=== PATIENT | female | born 1960 | race Caucasian/White ===

== ENCOUNTER 2017-03-23 20:47 | Emergency (ER) | payer BC ==
[2017-03-23] MEDS ORDERED: Ketorolac 60 MG/2 ML SDV IM ONE (22:28)
--- NOTE | 2017-03-23 22:34 | EDM.PDOC ---
ED HPI GENERAL MEDICAL PROBLEM - General Chief Complaint: Lower Extremity Injury/Pain Stated Complaint: PT HURT RT FOOT Time Seen by Provider: 03/23/17 21:05 Source of Information: Reports: Patient, Family History Limitations: Reports: No Limitations - History of Present Illness INITIAL COMMENTS - FREE TEXT/NARRATIVE: History of present illness: [57-year-old female comes in with complaint of foot pain patient indicates that her right great toe and the dorsal aspect as well as the plantar aspect of her right foot hurts when she ambulates.] Review of systems: As per history of present illness and below otherwise all systems reviewed and negative. Past medical history: As per history of present illness and as reviewed below otherwise noncontributory. Surgical history: As per history of present illness and as reviewed below otherwise noncontributory. Social history: No reported history of drug or alcohol abuse. Family history: As per history of present illness and as reviewed below otherwise noncontributory. Physical exam: HEENT: Atraumatic, normocephalic, pupils reactive, negative for conjunctival pallor or scleral icterus, mucous membranes moist, throat clear, neck supple, nontender, trachea midline. Lungs: Clear to auscultation, breath sounds equal bilaterally, chest nontender. Heart: S1S2, regular, negative for clicks, rubs, or JVD. Abdomen: Soft, nondistended, nontender. Negative for masses or hepatosplenomegaly. Negative for costovertebral tenderness. Pelvis: Stable nontender. Genitourinary: Deferred. Rectal: Deferred. Extremities: Atraumatic, negative for cords or calf pain. Neurovascular unremarkable. Neuro: Awake, alert, oriented. Cranial nerves II through XII unremarkable. Cerebellum unremarkable. Motor and sensory unremarkable throughout. Exam nonfocal. Global assessment was benign the foot is atraumatic and the patient indicated the palpation and manipulation of the foot and toe was not painful and she didn' t understand how her walking on it can hurt so much more than having it manually assessed. Diagnostics: [] Therapeutics: [Toradol 60 mg IM] Impression: [#1 foot pain] Plan: [Follow-up with primary care provider] Definitive disposition and diagnosis as appropriate pending reevaluation and review of above. right foot Pain Score (Numeric/FACES): 8 - Related Data Allergies Allergy/AdvReac Type Severity Reaction Status Date / Time No Known Allergies Allergy Verified 10/22/17 21:29 Home Meds: Home Meds Aspirin [Adult Low Dose Aspirin EC] 1 tab PO DAILY 02/09/15 [History] Losartan/Hydrochlorothiazide [Losartan-HCTZ 100-25 MG] 1 tab PO DAILY 02/09/15 [ History] atorvaSTATin [Lipitor] 1 tab PO DAILY 02/09/15 [History] Meloxicam 7.5 mg PO BID #30 tablet 03/23/17 [Rx] Past Medical History HEENT History: Reports: None Cardiovascular History: Reports: Hypertension, Stents, Other (See Below) Other Cardiovascular History: enlarged heart Respiratory History: Reports: None Gastrointestinal History: Reports: None Genitourinary History: Reports: Renal Calculus [employer] History: Reports: Musculoskeletal History: Reports: Arthritis, RA Neurological History: Reports: None Psychiatric History: Reports: None Endocrine/Metabolic History: Reports: None Hematologic History: Reports: None Immunologic History: Reports: None Oncologic (Cancer) History: Reports: None Dermatologic History: Reports: None - Infectious Disease History Infectious Disease History: Reports: Chicken Pox - Past Surgical History Head Surgeries/Procedures: Reports: None HEENT Surgical History: Reports: None Cardiovascular Surgical History: Reports: Carotid Stents GI Surgical History: Reports: None Female Surgical History: Reports: Section Social & Family History - Tobacco Use Smoking Status *Q: Never Smoker - Caffeine Use Caffeine Use: Reports: Coffee, Tea - Recreational Drug Use Recreational Drug Use: No Review of Systems - Review of Systems Review Of Systems: See Below (See history of present illness) ED EXAM, GENERAL - Physical Exam Exam: See Below (See history of present illness) Course - Vital Signs Last Recorded V/S: Last Vital Signs Temp 36.2 C 03/23/17 21:00 Pulse 87 03/23/17 21:00 Resp 18 03/23/17 21:00 BP 146/76 H 03/23/17 21:00 Pulse Ox 95 03/23/17 21:00 - Orders/Labs/Meds Orders: Active Orders 24 hr Category Date Time Status Foot 2V Rt [CR] Stat Exams 03/23/17 21:09 Ordered Ketorolac [Toradol] Med 03/23/17 22:28 Once 60 mg IM ONETIME ONE Labs: Laboratory Tests 03/23/17 03/23/17 Range/Units 21:45 21:45 WBC 10.76 (4.0-11.0) K/uL RBC 3.56 L (4.30-5.90) M/uL Hgb 11.6 L (12.0-16.0) g/dL Hct 35.7 L (36.0-46.0) % MCV 100.3 H (80.0-98.0) fL MCH 32.6 H (27.0-32.0) pg MCHC 32.5 (31.0-37.0) g/dL RDW Std Deviation 59.5 (28.0-62.0) fl RDW Coeff of Ursula 17 H (11.0-15.0) % Plt Count 355 (150-400) K/uL MPV 8.70 (7.40-12.00) fL Neut % (Auto) 86.4 H (48.0-80.0) % Lymph % (Auto) 10.6 L (16.0-40.0) % Dewey % (Auto) 2.0 (0.0-15.0) % Eos % (Auto) 0.6 (0.0-7.0) % Baso % (Auto) 0.4 (0.0-1.5) % Neut # (Auto) 9.3 H (1.4-5.7) K/uL Lymph # (Auto) 1.1 (0.6-2.4) K/uL Dewey # (Auto) 0.2 (0.0-0.8) K/uL Eos # (Auto) 0.1 (0.0-0.7) K/uL Baso # (Auto) 0.0 (0.0-0.1) K/uL Nucleated RBC % 0.0 /100WBC Nucleated RBCs # 0 K/uL Sodium 141 (136-146) mmol/L Potassium 3.6 (3.5-5.1) mmol/L Chloride 104 (98-110) mmol/L Carbon Dioxide 23 (21-31) mmol/L BUN 19 (6.0-23.0) mg/dL Creatinine 1.3 (0.6-1.5) mg/dL Est Cr Clr Drug Dosing 39.02 mL/min Estimated GFR (MDRD) 42.1 ml/min Glucose 131 H (60-110) mg/dL Uric Acid 11.2 H (2.1-6.2) mg/dL Calcium 10.0 (8.8-10.8) mg/dL Total Bilirubin 1.2 (0.1-1.5) mg/dL AST 26 (5-40) IU/L ALT 23 (8-54) IU/L Alkaline Phosphatase 77 (40-150) Total Protein 7.7 (6.0-8.0) g/dL Albumin 4.0 (3.5-5.0) g/dL Globulin 3.7 H (2.0-3.5) g/dL Albumin/Globulin Ratio 1.1 L (1.3-2.8) Departure - Departure Time of Disposition: 22:35 Disposition: Home, Self-Care 01 Condition: Good Clinical Impression: Foot pain, right - Discharge Information Referrals: PCP,None [Primary Care Provider] - Additional Instructions: The following information is given to patients seen in the emergency department who are being discharged to home. This information is to outline your options for follow-up care. We provide all patients seen in our emergency department with a follow-up referral. The need for follow-up, as well as the timing and circumstances, are variable depending upon the specifics of your emergency department visit. If you don't have a primary care physician on staff, we will provide you with a referral. We always advise you to contact your personal physician following an emergency department visit to inform them of the circumstance of the visit and for follow-up with them and/or the need for any referrals to a consulting specialist. The emergency department will also refer you to a specialist when appropriate. This referral assures that you have the opportunity for follow-up care with a specialist. All of these measure are taken in an effort to provide you with optimal care, which includes your follow-up. Under all circumstances we always encourage you to contact your private physician who remains a resource for coordinating your care. When calling for follow-up care, please make the office aware that this follow-up is from your recent emergency room visit. If for any reason you are refused follow-up, please contact the [facility] Emergency Department at and asked to speak to the emergency department charge nurse. Take medication as directed follow-up with PCP 1-2 days Return to ED as needed as discussed - My Orders Last 24 Hours: My Active Orders 03/23/17 21:09 Foot 2V Rt [CR] Stat 03/23/17 22:28 Ketorolac [Toradol] 60 mg IM ONETIME ONE - Assessment/Plan Last 24 Hours: My Active Orders 03/23/17 21:09 Foot 2V Rt [CR] Stat 03/23/17 22:28 Ketorolac [Toradol] 60 mg IM ONETIME ONE
[2017-03-23] MEDS ORDERED: traMADol 50 MG Tab PO ONE (22:59)
[2017-03-24 03:15] VITALS: BP 150/90
--- NOTE | 2017-03-24 18:14 | CR ---
EXAM DATE: 03/23/17 PATIENT'S AGE: 57 Patient: SHARRON HOLDEN Facility: [place], [place] Site . Site : 1960 Study: XRay Extremity Right foot [id number]/22/2017 9:51:58 PM Ordering Physician: Doctor Rod Final Report: INDICATION: Foot pain TECHNIQUE: Foot radiograph 2 views right COMPARISON: None FINDINGS: Bones: Alignment is normal. No acute fractures or aggressive bone lesions identified. Large plantar calcaneal spur and enthesophyte noted. Joint spaces: Unremarkable. No ankle effusion is seen. Soft tissues: Mild diffuse swelling and edema seen. Kager`s fat pad is normal in appearance. The visualized Achilles` tendon is unremarkable. No radiopaque foreign bodies are seen. IMPRESSION: 1. No acute osseous injuries are noted. Dictated by: Kevin Bolanos MD @ 03/23/2017 22:17:40 (Electronic Signature) Report Signed by Proxy. CALE
== END 2017-03-23 23:25 | disposition home or self-care (01) ==
LOC: MW.ED 20:47
DX: M79.671 Pain in right foot (principal); M79.674 Pain in right toe(s); Z79.82 Long term (current) use of aspirin; Z79.899 Other long term (current) drug therapy
CPT/HCPCS: 36415; 73620; 80053; 84550; 85025; 99284; A9270; 99282

== ENCOUNTER 2018-10-21 04:07 | Emergency (ER) | payer SELFPAY ==
[2018-10-21] MEDS ORDERED: Sodium Chloride 0.9% 1,000 ML IV ONE (04:26)
--- NOTE | 2018-10-21 06:00 | EDM.PDOC ---
ED HPI GENERAL MEDICAL PROBLEM - General Chief Complaint: Genitourinary Problem Stated Complaint: PRESSURE, SHORTNESS OF BREATH Time Seen by Provider: 10/21/18 06:00 - History of Present Illness INITIAL COMMENTS - FREE TEXT/NARRATIVE: HISTORY AND PHYSICAL: History of present illness: Patient is a 58-year-old female presents with concern of urgency frequency and discomfort with urination denies fever chills nausea vomiting or other complaints Review of systems: As per history of present illness and below otherwise all systems reviewed and negative. Past medical history: As per history of present illness and as reviewed below otherwise noncontributory. Surgical history: As per history of present illness and as reviewed below otherwise noncontributory. Social history: No reported history of drug or alcohol abuse. Family history: As per history of present illness and as reviewed below otherwise noncontributory. Physical exam: HEENT: Atraumatic, normocephalic, pupils reactive, negative for conjunctival pallor or scleral icterus, mucous membranes moist, throat clear, neck supple, nontender, trachea midline. Lungs: Clear to auscultation, breath sounds equal bilaterally, chest nontender. Heart: S1S2, regular, negative for clicks, rubs, or JVD. Abdomen: Soft, nondistended, nontender. Negative for masses or hepatosplenomegaly. Negative for costovertebral tenderness. Pelvis: Stable nontender. Genitourinary: Deferred. Rectal: Deferred. Extremities: Atraumatic, negative for cords or calf pain. Neurovascular unremarkable. Neuro: Awake, alert, oriented. Cranial nerves II through XII unremarkable. Cerebellum unremarkable. Motor and sensory unremarkable throughout. Exam nonfocal. Diagnostics: CBC CMP UA Therapeutics: None Impression: #1 urinary tract infection Definitive disposition and diagnosis as appropriate pending reevaluation and review of above. painful urination Pain Score (Numeric/FACES): 1 - Related Data Allergies Allergy/AdvReac Type Severity Reaction Status Date / Time No Known Allergies Allergy Verified 10/21/18 04:09 Home Meds: Home Meds Aspirin [Adult Low Dose Aspirin EC] 1 tab PO DAILY 02/09/15 [History] Losartan/Hydrochlorothiazide [Losartan-HCTZ 100-25 MG] 12.5 mg PO DAILY [History] atorvaSTATin [Lipitor] 40 tab PO DAILY 02/09/15 [History] Carvedilol 25 mg PO BID 10/21/18 [History] Losartan Potassium 100 mg PO DAILY 10/21/18 [History] Past Medical History HEENT History: Reports: None Cardiovascular History: Reports: High Cholesterol, Hypertension, Stents, Other ( See Below) Other Cardiovascular History: enlarged heart Respiratory History: Reports: None Gastrointestinal History: Reports: None Genitourinary History: Reports: Renal Calculus [employer]ENTICE History: Reports: Musculoskeletal History: Reports: RA Neurological History: Reports: None Psychiatric History: Reports: Anxiety, Panic Attack Endocrine/Metabolic History: Reports: None Hematologic History: Reports: None Immunologic History: Reports: None Oncologic (Cancer) History: Reports: None Dermatologic History: Reports: None - Infectious Disease History Infectious Disease History: Reports: None - Past Surgical History Head Surgeries/Procedures: Reports: None HEENT Surgical History: Reports: None Cardiovascular Surgical History: Reports: Carotid Stents GI Surgical History: Reports: None Female Surgical History: Reports: Section Social & Family History - Family History Family Medical History: Noncontributory - Tobacco Use Smoking Status *Q: Former Smoker Used Tobacco, but Quit: No Tobacco Use Comment: stop 29 yrs ago - Caffeine Use Caffeine Use: Reports: Coffee, Soda - Recreational Drug Use Recreational Drug Use: No ED ROS GENERAL - Review of Systems Review Of Systems: ROS reveals no pertinent complaints other than HPI. ED EXAM, GENERAL - Physical Exam Exam: See Below (See dictation) Course - Vital Signs Text/Narrative:: I discussed diagnostics with patient and hematuria with likely diagnosis P and cystitis and infectious in nature but the need for follow-up she understands and agrees I did discuss that there are other etiologies and that urology referral as well as follow with her private doctor is necessary for reevaluation and repeat urinalysis patient understands and agrees she'll be prescribed ciprofloxacin 500 mg twice a day to be taken 10 days. Last Recorded V/S: Last Vital Signs Temp 36.4 C 10/21/18 04:10 Pulse 81 10/21/18 04:10 Resp 18 10/21/18 04:10 BP 189/70 H 10/21/18 04:10 Pulse Ox 95 10/21/18 04:10 - Orders/Labs/Meds Orders: Active Orders 24 hr Category Date Time Status CULTURE URINE [RM] Stat Lab 10/21/18 04:15 Received Labs: Laboratory Tests 10/21/18 10/21/18 10/21/18 Range/Units 04:15 04:40 04:40 WBC 9.24 (4.0-11.0) K/uL RBC 4.12 L (4.30-5.90) M/uL Hgb 12.7 (12.0-16.0) g/dL Hct 38.8 (36.0-46.0) % MCV 94.2 (80.0-98.0) fL MCH 30.8 (27.0-32.0) pg MCHC 32.7 (31.0-37.0) g/dL RDW Std Deviation 49.4 (28.0-62.0) fl RDW Coeff of Ursula 15 (11.0-15.0) % Plt Count 251 (150-400) K/uL MPV 9.40 (7.40-12.00) fL Neut % (Auto) 74.6 (48.0-80.0) % Lymph % (Auto) 15.2 L (16.0-40.0) % Jenkins % (Auto) 7.4 (0.0-15.0) % Eos % (Auto) 2.4 (0.0-7.0) % Baso % (Auto) 0.4 (0.0-1.5) % Neut # (Auto) 6.9 H (1.4-5.7) K/uL Lymph # (Auto) 1.4 (0.6-2.4) K/uL Jenkins # (Auto) 0.7 (0.0-0.8) K/uL Eos # (Auto) 0.2 (0.0-0.7) K/uL Baso # (Auto) 0.0 (0.0-0.1) K/uL Nucleated RBC % 0.0 /100WBC Nucleated RBCs # 0 K/uL Sodium 142 (136-145) mmol/L Potassium 3.7 (3.5-5.1) mmol/L Chloride 104 (98-107) mmol/L Carbon Dioxide 24.8 (21.0-32.0) mmol/L BUN 18 (7.0-18.0) mg/dL Creatinine 1.5 H (0.6-1.0) mg/dL Est Cr Clr Drug Dosing 31.94 mL/min Estimated GFR (MDRD) 35.5 ml/min Glucose 165 H (74-106) mg/dL Calcium 9.0 (8.5-10.1) mg/dL Total Bilirubin 0.6 (0.2-1.0) mg/dL AST 17 (15-37) IU/L ALT 18 (14-63) IU/L Alkaline Phosphatase 83 (46-116) U/L Total Protein 7.7 (6.4-8.2) g/dL Albumin 3.7 (3.4-5.0) g/dL Globulin 4.0 (2.6-4.0) g/dL Albumin/Globulin Ratio 0.9 (0.9-1.6) Urine Color RED Urine Appearance CLOUDY Urine pH 6.0 (5.0-8.0) Ur Specific Bradford 1.020 (1.001-1.035) Urine Protein 100 H (NEGATIVE) mg/dL Urine Glucose (UA) NEGATIVE (NEGATIVE) mg/dL Urine Ketones NEGATIVE (NEGATIVE) mg/dL Urine Occult Blood LARGE H (NEGATIVE) Urine Nitrite NEGATIVE (NEGATIVE) Urine Bilirubin NEGATIVE (NEGATIVE) Urine Urobilinogen 0.2 (<2.0) EU/dL Ur Leukocyte Esterase SMALL H (NEGATIVE) Urine RBC TOO NUMEROUS TO CT H (0-2/HPF) Urine WBC 2-5 (0-5/HPF) Ur Epithelial Cells RARE (NONE-FEW) Urine Bacteria RARE (NEGATIVE) Urinalysis Comment Meds: Medications Discontinued Medications Generic Name Dose Route Start Last Admin Trade Name Freq PRN Reason Stop Dose Admin Sodium Chloride 1,000 mls @ 999 mls/hr 10/21/18 04:26 10/21/18 05:35 Normal Saline IV 10/21/18 05:26 600 mls/hr .Bolus ONE Infusion Departure - Departure Time of Disposition: 05:59 Disposition: Home, Self-Care 01 Condition: Good Clinical Impression: UTI, Urinary tract infectious disease - Discharge Information Referrals: Young Onofre MD [Primary Care Provider] - Additional Instructions: The following information is given to patients seen in the emergency department who are being discharged to home. This information is to outline your options for follow-up care. We provide all patients seen in our emergency department with a follow-up referral. The need for follow-up, as well as the timing and circumstances, are variable depending upon the specifics of your emergency department visit. If you don't have a primary care physician on staff, we will provide you with a referral. We always advise you to contact your personal physician following an emergency department visit to inform them of the circumstance of the visit and for follow-up with them and/or the need for any referrals to a consulting specialist. The emergency department will also refer you to a specialist when appropriate. This referral assures that you have the opportunity for followup care with a specialist. All of these measure are taken in an effort to provide you with optimal care, which includes your followup. Under all circumstances we always encourage you to contact your private physician who remains a resource for coordinating your care. When calling for followup care, please make the office aware that this follow-up is from your recent emergency room visit. If for any reason you are refused follow-up, please contact the [facility] emergency department at and asked to speak to the emergency department charge nurse. [facility] Specialty Care - Urology [address] [place] [id number] Cipro as prescribed follow-up private medical doctor urology referral as discussed return as needed as discussed - My Orders Last 24 Hours: My Active Orders 10/21/18 04:15 CULTURE URINE [RM] Stat - Assessment/Plan Last 24 Hours: My Active Orders 10/21/18 04:15 CULTURE URINE [RM] Stat
[2018-10-21 06:17] VITALS: BP 180/72
== END 2018-10-21 06:17 | disposition home or self-care (01) ==
LOC: MW.ED 04:07
DX: N39.0 Urinary tract infection, site not specified (principal); I10 Essential (primary) hypertension; E78.00 Pure hypercholesterolemia, unspecified; F41.9 Anxiety disorder, unspecified; Z87.891 Personal history of nicotine dependence; Z79.82 Long term (current) use of aspirin; Z79.899 Other long term (current) drug therapy
CPT/HCPCS: 36415; 80053; 81001; 85025; 87086; 87088; 87186; 96360; 99283; J7040

== ENCOUNTER 2019-05-10 14:21 | Emergency (ER) | payer MEDICARE, OTHER ==
--- NOTE | 2019-05-10 14:49 | EDM.PDOC ---
ED HPI GENERAL MEDICAL PROBLEM - General Chief Complaint: Genitourinary Problem Stated Complaint: POSSIBLE UTI, HARD TIME CATCHING HER BREATH Time Seen by Provider: 05/10/19 14:49 Source of Information: Reports: Patient History Limitations: Reports: No Limitations - History of Present Illness INITIAL COMMENTS - FREE TEXT/NARRATIVE: HISTORY AND PHYSICAL: History of present illness: Patient is a 59-year-old female presents to the ED with complaint of possible UTI. She states for the past week she is having lower abdominal pressure that is worse with urination. She states her urine was slightly pink last week but this has resolved. She denies back pain, nausea, vomiting, fevers, or chills. She also states she has had a cough the past few days. She reports feeling short of breath occasionally, usually with a coughing fit. She denies chest pain. She reports history of asthma but out of her inhaler. she did use her daughters inhaler last night and felt better with this. Review of systems: As per history of present illness and below otherwise all systems reviewed and negative. Past medical history: As per history of present illness and as reviewed below otherwise noncontributory. Surgical history: As per history of present illness and as reviewed below otherwise noncontributory. Social history: No reported history of drug or alcohol abuse. Family history: As per history of present illness and as reviewed below otherwise noncontributory. Physical exam: General: Patient sitting comfortably in no acute distress and nontoxic appearing HEENT: Atraumatic, normocephalic, pupils reactive, negative for conjunctival pallor or scleral icterus, mucous membranes moist, throat clear, neck supple, nontender, trachea midline. No meningeal signs. Lungs: Clear to auscultation, breath sounds equal bilaterally, chest nontender. Heart: S1S2, regular, negative for clicks, rubs, or overt murmur. Abdomen: Soft, nondistended, nontender. Negative for masses or hepatosplenomegaly. Negative for costovertebral tenderness. No rigidity, rebound , guarding. Pelvis: Stable nontender. Genitourinary: Deferred. Rectal: Deferred. Extremities: Atraumatic, negative for cords or calf pain. Neurovascular unremarkable. Neuro: Awake, alert, oriented. Cranial nerves II through XII unremarkable. Cerebellum unremarkable. Motor and sensory unremarkable throughout. Exam nonfocal. Notes: Diagnostics: UA, CBC, CMP, troponin, EKG Therapeutics: [] Prescriptions: Levaquin Ventolin inhaler Impression: UTI, Acute bronchitis Plan: Drink plenty of fluids and take antibiotic as directed. Follow up with primary care provider Return to ED as needed as discussed Definitive disposition and diagnosis as appropriate pending reevaluation and review of above. Bilateral Abdomen Pain Score (Numeric/FACES): 2 - Related Data Allergies Allergy/AdvReac Type Severity Reaction Status Date / Time No Known Allergies Allergy Verified 05/10/19 14:49 Home Meds: Home Meds Aspirin [Adult Low Dose Aspirin EC] 1 tab PO DAILY 02/09/15 [History] atorvaSTATin [Lipitor] 40 tab PO DAILY 02/09/15 [History] Losartan Potassium 100 mg PO DAILY 10/21/18 [History] carvediloL [Carvedilol] 25 mg PO BID 10/21/18 [History] Albuterol Sulfate [Proair Hfa] 8.5 gm IH ASDIRECTED 05/10/19 [History] Albuterol [Ventolin HFA] 1 puff INH Q4H #1 inhaler 05/10/19 [Rx] Hydrochlorothiazide [Microzide] 12.5 mg PO DAILY 05/10/19 [History] Nitroglycerin [Nitrostat] 0.4 mg SL ASDIRECTED 05/10/19 [History] levoFLOXacin [Levaquin] 500 mg PO DAILY 7 Days #7 tab 05/10/19 [Rx] Past Medical History HEENT History: Reports: None Cardiovascular History: Reports: High Cholesterol, Hypertension, Stents, Other ( See Below) Other Cardiovascular History: enlarged heart Respiratory History: Reports: None Gastrointestinal History: Reports: None Genitourinary History: Reports: Renal Calculus [employer]OR History: Reports: Musculoskeletal History: Reports: RA Neurological History: Reports: None Psychiatric History: Reports: Anxiety, Panic Attack Endocrine/Metabolic History: Reports: None Hematologic History: Reports: None Immunologic History: Reports: None Oncologic (Cancer) History: Reports: None Dermatologic History: Reports: None - Infectious Disease History Infectious Disease History: Reports: None - Past Surgical History Head Surgeries/Procedures: Reports: None HEENT Surgical History: Reports: None Cardiovascular Surgical History: Reports: Carotid Stents GI Surgical History: Reports: None Female Surgical History: Reports: Section Social & Family History - Family History Family Medical History: Noncontributory - Caffeine Use Caffeine Use: Reports: Coffee, Soda ED ROS GENERAL - Review of Systems Review Of Systems: Comprehensive ROS is negative, except as noted in HPI. ED EXAM, RENAL/ - Physical Exam Exam: See Below (see dictation) Course - Vital Signs Last Recorded V/S: Last Vital Signs Temp 97.2 F 05/10/19 14:46 Pulse 84 05/10/19 14:46 Resp 22 H 05/10/19 14:46 BP 136/56 L 05/10/19 14:46 Pulse Ox 95 05/10/19 14:46 - Orders/Labs/Meds Orders: Active Orders 24 hr Category Date Time Status CULTURE URINE [RM] Stat Lab 05/10/19 15:05 Received Labs: Laboratory Tests 05/10/19 05/10/19 05/10/19 Range/Units 15:05 15:23 15:23 WBC 9.81 (4.0-11.0) K/uL RBC 4.02 L (4.30-5.90) M/uL Hgb 12.3 (12.0-16.0) g/dL Hct 36.9 (36.0-46.0) % MCV 91.8 (80.0-98.0) fL MCH 30.6 (27.0-32.0) pg MCHC 33.3 (31.0-37.0) g/dL RDW Std Deviation 49.3 (28.0-62.0) fl RDW Coeff of Ursula 15 (11.0-15.0) % Plt Count 208 (150-400) K/uL MPV 9.10 (7.40-12.00) fL Neut % (Auto) 74.7 (48.0-80.0) % Lymph % (Auto) 12.2 L (16.0-40.0) % [place] % (Auto) 12.1 (0.0-15.0) % Eos % (Auto) 0.7 (0.0-7.0) % Baso % (Auto) 0.3 (0.0-1.5) % Neut # (Auto) 7.3 H (1.4-5.7) K/uL Lymph # (Auto) 1.2 (0.6-2.4) K/uL [place] # (Auto) 1.2 H (0.0-0.8) K/uL Eos # (Auto) 0.1 (0.0-0.7) K/uL Baso # (Auto) 0.0 (0.0-0.1) K/uL Nucleated RBC % 0.0 /100WBC Nucleated RBCs # 0 K/uL Sodium 135 L (136-145) mmol/L Potassium 3.6 (3.5-5.1) mmol/L Chloride 100 (98-107) mmol/L Carbon Dioxide 21.6 (21.0-32.0) mmol/L BUN 19 H (7.0-18.0) mg/dL Creatinine 1.6 H (0.6-1.0) mg/dL Est Cr Clr Drug Dosing 29.57 mL/min Estimated GFR (MDRD) 32.9 ml/min Glucose 173 H (74-106) mg/dL Calcium 9.0 (8.5-10.1) mg/dL Total Bilirubin 0.6 (0.2-1.0) mg/dL AST 17 (15-37) IU/L ALT 14 (14-63) IU/L Alkaline Phosphatase 83 (46-116) U/L Troponin I < 0.050 (0.000-0.056) ng/mL Total Protein 7.7 (6.4-8.2) g/dL Albumin 3.3 L (3.4-5.0) g/dL Globulin 4.4 H (2.6-4.0) g/dL Albumin/Globulin Ratio 0.8 L (0.9-1.6) Urine Color YELLOW Urine Appearance SLT CLOUDY Urine pH 6.5 (5.0-8.0) Ur Specific Mcc[place]ick 1.015 (1.001-1.035) Urine Protein 100 H (NEGATIVE) mg/dL Urine Glucose (UA) NEGATIVE (NEGATIVE) mg/dL Urine Ketones NEGATIVE (NEGATIVE) mg/dL Urine Occult Blood LARGE H (NEGATIVE) Urine Nitrite POSITIVE H (NEGATIVE) Urine Bilirubin SMALL H (NEGATIVE) Urine Ictotest NEGATIVE Urine Urobilinogen 0.2 (<2.0) EU/dL Ur Leukocyte Esterase LARGE H (NEGATIVE) Urine RBC 20-30 (0-2/HPF) Urine WBC 90-100 (0-5/HPF) Ur Epithelial Cells OCCASIONAL (NONE-FEW) Urine Bacteria 1+ H (NEGATIVE) Departure - Departure Time of Disposition: 16:46 Disposition: Home, Self-Care 01 Condition: Good Clinical Impression: UTI (urinary tract infection), Acute bronchitis - Discharge Information Prescriptions: Albuterol [Ventolin HFA] 1 puff INH Q4H #1 inhaler levoFLOXacin [Levaquin] 500 mg PO DAILY 7 Days #7 tab Referrals: Young Onofre MD [Primary Care Provider] - Forms: ED Department Discharge Additional Instructions: The following information is given to patients seen in the emergency department who are being discharged to home. This information is to outline your options for follow-up care. We provide all patients seen in our emergency department with a follow-up referral. The need for follow-up, as well as the timing and circumstances, are variable depending upon the specifics of your emergency department visit. If you don't have a primary care physician on staff, we will provide you with a referral. We always advise you to contact your personal physician following an emergency department visit to inform them of the circumstance of the visit and for follow-up with them and/or the need for any referrals to a consulting specialist. The emergency department will also refer you to a specialist when appropriate. This referral assures that you have the opportunity for follow-up care with a specialist. All of these measure are taken in an effort to provide you with optimal care, which includes your follow-up. Under all circumstances we always encourage you to contact your private physician who remains a resource for coordinating your care. When calling for follow-up care, please make the office aware that this follow-up is from your recent emergency room visit. If for any reason you are refused follow-up, please contact the [facility] at and asked to speak to the emergency department charge nurse. [facility] [address] [place] [id number] [facility] [address] [place] [address] Use inhaler as needed Drink plenty of fluids and take antibiotic as directed. Follow up with primary care provider Return to ED as needed as discussed
[2019-05-10 16:07] LABS: BLOOD UREA NITROGEN,BUN 19 mg/dL (7.0-18.0); CARBON DIOXIDE,CO2 21.6 mmol/L (21.0-32.0); CHLORIDE,CL 100 mmol/L (98-107); GLUCOSE RANDOM 173 mg/dL (74-106); POTASSIUM,K 3.6 mmol/L (3.5-5.1); SODIUM,NA 135 mmol/L (136-145)
--- NOTE | 2019-05-10 16:39 | CR ---
INDICATION: Chest pain and shortness of breath. COMPARISON: None available. FINDINGS: PA and lateral views of the chest were obtained. The lungs are clear. No focal or diffuse infiltrates are present. The heart is normal in size. There is a left sided defibrillator with leads entering the left subclavian vein and terminating in the right atrium, right ventricle, and coronary sinus. The mediastinum is normal in appearance. The osseous structures are normal in appearance for the patient`s age. IMPRESSION: No active disease seen in the chest. Dictated by Armando Clancy MD @ May 10 2019 4:36PM Signed by Dr. Armando Clancy @ May 10 2019 4:38PM
[2019-05-10 16:58] VITALS: BP 123/70; PULSE 76
== END 2019-05-10 16:53 | disposition home or self-care (01) ==
LOC: MW.ED 14:21
DX: N39.0 Urinary tract infection, site not specified (principal); J20.9 Acute bronchitis, unspecified; I10 Essential (primary) hypertension; E78.00 Pure hypercholesterolemia, unspecified; M06.9 Rheumatoid arthritis, unspecified; F41.9 Anxiety disorder, unspecified; Z79.82 Long term (current) use of aspirin; Z79.899 Other long term (current) drug therapy
CPT/HCPCS: 36415; 71046; 71046-26; 80053; 81001; 84484; 85025; 87086; 87088; 87186; 99285-25

== ENCOUNTER 2021-10-14 14:34 | Emergency (ER) | payer MEDICARE, OTHER ==
[2021-10-14] MEDS ORDERED: cefTRIAXone 1 GM Vial IM ONE (15:10)
[2021-10-14] MEDS ORDERED: Acetaminophen/HYDROcodone 325-5 MG Tab PO ONE ×2 (15:11→15:43)
[2021-10-14 15:42] VITALS: BP 153/61; PULSE 68
== END 2021-10-14 15:43 | disposition home or self-care (01) ==
LOC: MW.ED 14:34
DX: N12 Tubulo-interstitial nephritis, not specified as acute or chronic (principal); E78.00 Pure hypercholesterolemia, unspecified; I10 Essential (primary) hypertension; Z79.82 Long term (current) use of aspirin; Z79.899 Other long term (current) drug therapy
CPT/HCPCS: 81001; 87086; 96372; 99284; A9270; J0696; 87088; 87186